=== PATIENT | male | born 1955 | race Caucasian/White ===

== ENCOUNTER → 2016-10-17 | Outpatient (CLI) | payer OTHER ==
[~2016-10-17] MED LIST: CIPRO PO; GLYBURIDE PO; LIPITOR PO; LOTREL 5/10 MG1 CAP PO; METFORMIN PO; PRILOSEC20 MG PO; TYLOX 5/500 CAP1 CAP PO
--- NOTE | ~2016-10-17 | US77 ---
[facility] A Service of [facility] & [facility] RADIOLOGY TEXT RESULTS PATIENT: DENG NULL LOCATION: [facility] : 59 UNIT #: [id number] AGE: [address]: Jani Reed MD SEX: M ORDER DR: [id number] [facility] [address] [place], [place] [address] [id number] O MR#: [id number] Acc #: [id number] NAME: DENG NULL : 1955 SEX: M STUDY DATE/TIME: 10/17/2016 12:18 UNIT: US ROOM: STUDY DESCRIPTION: US Kidney Bilateral Complete Attending Physician: Jani Reed Jr., M.D. Referring Physician: Jani Reed Jr., M.D. Ordering Physician: Jani Reed Jr., M.D. Primary Care Physician: Jani Reed Jr., M.D. MEDICAL IMAGING REPORT This report is preliminary unless electronic signature is present EXAM Complete renal ultrasound COMPARISON Limited abdominal ultrasound dated May 24, 2013 as well as renal ultrasound dated February 11, [address] abdomen and pelvis dated February 29, 2008. INDICATIONS 61-year-old male with [id number] renal insufficiency. History of renal calculi and right-sided hydronephrosis. Current GFR of 29 with BUN of 32 and creatinine of 2.3. FINDINGS There is severe right hydronephrosis, which is likely unchanged from 2007. There is diffuse right renal cortical thinning consistent with longstanding obstruction and renal cortical volume loss. On CT of 2007, there was diffuse right-sided hydroureter, possibly representing a ureterovesical obstruction of uncertain etiology, perhaps congenital. There was only mild hydronephrosis on May 24, 2013 ultrasound seen at the right kidney and renal cortical volume loss has definitely progressed since that time, now measuring as thin as 7 mm as compared to up to 1.9 cm previously. Right kidney is enlarged, measuring up to 13 cm, likely secondary to hydronephrosis. Urinary bladder is unremarkable. Left kidney is normal in size and cortical thickness. There is no left hydronephrosis. IMPRESSION 1. As compared to ultrasound of 2013, there is now severe right hydronephrosis, which is likely longstanding given that there has been progressive diffuse renal cortical loss in the right kidney. If not already performed, urological consultation is recommended to find a possible etiology of the patient's obstruction and to possibly STS. [facility] A Service of [facility] RADIOLOGY TEXT RESULTS PATIENT: DENG NULL LOCATION: [facility] : 59 UNIT #: [id number] AGE: [address]: Jani Reed MD SEX: M ORDER DR: intervene in order to prevent further renal cortical volume loss and loss of kidney function. Nephrology consultation may also be beneficial. 2. Normal left kidney. Dictated by... Maury Kumar M.D. THIS IS AN ELECTRONICALLY VERIFIED REPORT Maury Kumar M.D. at 10/20/2016 9:51 PM BEHZAD/diane TD: 10/18/2016 00:34 JOB #: [id number] MEDICAL IMAGING REPORT Page 1 of 1 COPY
== END | disposition home or self-care (01) ==
LOC: CGUS 12:00
DX: R79.89 Other specified abnormal findings of blood chemistry (principal); N13.30 Unspecified hydronephrosis; N28.89 Other specified disorders of kidney and ureter
CPT/HCPCS: 76770

== ENCOUNTER → 2016-11-06 | Outpatient (CLI) | payer OTHER ==
--- NOTE | ~2016-11-06 | CT4 ---
[facility] A Service of [facility] & [facility] RADIOLOGY TEXT RESULTS PATIENT: DENG NULL LOCATION: [facility] : 59 UNIT #: [id number] AGE: [address]: Chavez Malloy MD SEX: M ORDER DR: [id number] [facility] [address] [place], [place] [address] [id number] O MR#: [id number] Acc #: [id number] NAME: DENG NULL : 1955 SEX: M STUDY DATE/TIME: 11/06/2016 14:20 UNIT: [facility] ROOM: STUDY DESCRIPTION: CT Abd and Pelv Wo Cont Attending Physician: Chavez Malloy M.D. Referring Physician: Jani Reed Jr., M.D. Ordering Physician: Chavez Malloy M.D. Primary Care Physician: Jani Reed Jr., M.D. MEDICAL IMAGING REPORT This report is preliminary unless electronic signature is present EXAM CT abdomen and pelvis. INDICATION Hydronephrosis. Right flank pain for 1 month. Renal calculi. TECHNIQUE CT of the abdomen and pelvis without contrast. Coronal and sagittal reconstructions were obtained. This CT exam was performed with one or more of the following radiation dose reduction techniques: automatic exposure control, adjustment of mA and/or kV according to patient size, and iterative reconstruction. COMPARISON CT abdomen and pelvis dated 02/29/2008. FINDINGS ABDOMEN: There is a large calculus in the proximal right ureter measuring 0.8 x 0.8 x 0.6 cm. This is just below the ureteropelvic junction. This results in a severe right hydronephrosis. There does appear to be some renal cortical thinning of the right kidney. No remaining right renal calculi. There are some nonobstructing calculi in the left kidney. There is generalized left renal cortical atrophy, as well. There is a small umbilical hernia. There is some diastases of the rectus abdominis muscles. The bowel is not dilated. Abdominal aorta is normal in caliber. The appendix is normal. PELVIS: Bladder is unremarkable. No enlarged pelvic or inguinal lymph nodes. No acute osseous abnormalities. STS. [facility] A Service of [facility] & [facility] RADIOLOGY TEXT RESULTS PATIENT: DENG NULL LOCATION: [facility] : 59 UNIT #: [id number] AGE: [address]: Chavez Malloy MD SEX: M ORDER DR: IMPRESSION 1. Large calculus in the proximal right ureter, just below the ureteropelvic junction measuring up to 0.8 cm. This results in a severe right hydronephrosis. 2. 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 3. Left nephrolithiasis. Unexpected findings were called to the office of Dr. Chavez Malloy on 11/07/2016 at 0910. Dictated by... Raudel Edwards M.D. THIS IS AN ELECTRONICALLY VERIFIED REPORT Raudel Edwards M.D. at 11/07/2016 9:25 AM HUSSEIN/charlotte TD: 11/07/2016 09:15 JOB #: [id number] MEDICAL IMAGING REPORT Page 1 of 1 COPY
== END | disposition home or self-care (01) ==
LOC: CCAT 14:05
DX: N13.2 Hydronephrosis with renal and ureteral calculous obstruction (principal); N26.1 Atrophy of kidney (terminal)
CPT/HCPCS: 74176

== ENCOUNTER → 2016-12-11 | Outpatient (CLI) | payer OTHER ==
--- NOTE | ~2016-12-11 | CR7 ---
[facility] A Service of [facility] & [facility] RADIOLOGY TEXT RESULTS PATIENT: DENG NULL LOCATION: [facility] : 59 UNIT #: [id number] AGE: [address]: Chavez Malloy MD SEX: M ORDER DR: [id number] [facility] [place] [address] [place], [place] [address] [id number] O MR#: [id number] Acc #: [id number] NAME: DENG NULL. : 1955 SEX: M STUDY DATE/TIME: 12/11/2016 09:27 UNIT: [facility] ROOM: STUDY DESCRIPTION: CR Abdomen Single AP View Attending Physician: Chavez Malloy M.D. Referring Physician: Chavez Malloy M.D. Ordering Physician: Chavez Malloy M.D. Primary Care Physician: Jani Reed Jr., M.D. MEDICAL IMAGING REPORT This report is preliminary unless electronic signature is present EXAM Abdomen single view 12/11/2016 09:27 hours. HISTORY Patient for followup of kidney stones which occurred 1 month ago. Lithotripsy 2 weeks ago with stent placement for followup. COMPARISON CT abdomen and pelvis 11/06/2016. FINDINGS Supine view of the abdomen and an additional view of the pelvis are performed. There is a new right ureteral double-J stent with upper loop over the renal pelvis and lower loop in the bladder. The previous stone in the right ureter is not seen in the ureter. There are tiny flecks of calcium projecting over the lower pole of the right kidney which could represent previous stone fragmented within the right lower pole collecting system, however there is stool overlying this area assessment difficult. No definite left renal or ureteral calculi are seen. IMPRESSION 1. There is a new right ureteral double-J stent and no residual ureteral calculus is seen. 2. There are flecks of calcium projecting over the lower pole right kidney with overlying stool as well. This could represent the previous stone which has been fragmented and push back to the lower pole, however, the presence of stool makes this assessment difficult. 3. No definite left renal or ureteral calculi. Dictated by... Osiris Diane M.D. THIS IS AN ELECTRONICALLY VERIFIED REPORT [facility] A Service of [facility] & [facility] RADIOLOGY TEXT RESULTS PATIENT: DENG NULL LOCATION: [facility] : 59 UNIT #: [id number] AGE: [address]: Chavez Malloy MD SEX: M ORDER DR: Osiris Diane M.D. at 12/12/2016 9:15 AM SHIRA/conor TD: 12/11/2016 16:07 JOB #: [id number] MEDICAL IMAGING REPORT Page 1 of 1 COPY
== END | disposition home or self-care (01) ==
LOC: CRAD 09:07
DX: N20.0 Calculus of kidney (principal); Z96.0 Presence of urogenital implants
CPT/HCPCS: 74000